=== PATIENT | male | born 1990 | race Caucasian/White ===

== ENCOUNTER 2016-09-12 12:19 | Day surgery (SDC) | payer OTHER ==
[~2016-09-12] VITALS: Ht 170.2 cm; Wt 62.8 kg
[~2016-09-12 12:19] MED LIST: MOTRIN IB200 MG PO; MOTRIN800 MG PO; OMEPRAZOLE40 M1 PO; PROAIR HFA8.5 GM IH; ULTRAM50 MG PO; ZOFRAN4 MG PO; ZYTAZE CAPSULE1 EACH PO
[2016-09-12 13:33] LABS: HEMATOCRIT 44.2 % (38.0-50.0); MCH 30.1 PG (29.0-34.0); MCHC 34.6 G/DL (30.0-36.0); MCV 86.8 FL (86-99); MEAN PLAT.VOLUME 10.4 uM^3 (9.0-12.4); PLATELET COUNT 236 K/uL (156-360); RBC DIS.WIDTH-CV 12.1 % (11.8-14.6); RBC DIS.WIDTH-SD 37.5 % (39-53); RED BLOOD COUNT 5.09 M/uL (4.00-5.50)
[2016-09-12 13:36] LABS: WHITE BLOOD COUNT 6.9 K/uL (4.1-10.2)
[2016-09-12 13:56] LABS: D-DIMER ELISA < 0.15 mg/L FEU (< 0.57)
[2016-09-12 13:57] LABS: CHLORIDE 105 mEq/L (99-109); POTASSIUM 3.9 mEq/L (3.7-5.4); SODIUM 141 mEq/L (136-147)
[2016-09-12 14:00] LABS: GLUCOSE 88 mg/dL (70-99)
[2016-09-12 14:01] LABS: ANION GAP 8 MEQ/L (2-14); TOTAL BILIRUBIN 0.7 mg/dL (0.0-1.0)
[2016-09-12 14:03] LABS: ALKALINE PHOSPHATASE 54 IU/L (3-129); GFR ESTIMATE (CALCULATED) > 59 mL/min/
[2016-09-12 14:04] LABS: UREA NITROGEN (BUN) 10 mg/dL (9-23)
[2016-09-12 14:07] LABS: LIPASE 19 U/L (1.0-51.0)
[2016-09-12 21:45] VITALS: BP 117/71
[2016-09-13 00:25] VITALS: BP 124/73
[2016-09-13 03:35] VITALS: BP 118/70
[2016-09-13 07:30] VITALS: BP 114/61
[2016-09-13] MEDS ORDERED: NORCO 5/3251 TABLET PO (09:46)
== END 2016-09-13 11:25 | disposition home or self-care (01) ==
LOC: EME 12:19 → RME 12:19 → SDC 18:44 → 2SOUTH 19:55 → 2EASTP 21:33
PROVIDERS: Nurse Practitioner Family
PROC: 0FT44ZZ Resection of Gallbladder, Percutaneous Endoscopic Approach (ICD-10-PCS; principal; 2016-09-12)
DX: K80.10 Calculus of gallbladder with chronic cholecystitis without obstruction (principal); J45.909 Unspecified asthma, uncomplicated; R01.1 Cardiac murmur, unspecified
CPT/HCPCS: 71020; 76705; 80053; 83690; 85027; 85379; 88304; 99281; 99284; G0378; J1100; J1170; J1335; J1885; J2175; J2250; J2405; J3010; J7120

== ENCOUNTER 2016-09-14 00:34 | Emergency (ER) | payer OTHER ==
[~2016-09-14] VITALS: Ht 170.2 cm; Wt 63.2 kg
[~2016-09-14 00:34] MED LIST changes: +NORCO 5/3251 TABLET PO
[2016-09-14 00:36] VITALS: BP 138/87
[2016-09-14 00:53] LABS: ADD MIUA? NO; BILIRUBIN NEGATIVE; BLOOD NEGATIVE; COLOR STRAW ((YELLOW)); GLUCOSE (STRIP) NEGATIVE; KETONES NEGATIVE; LEUKOCYTES NEGATIVE; NITRITE NEGATIVE; PROTEIN (STRIP) NEGATIVE; SPECIFIC GRAVITY 1.008 (1.000-1.030); UCUL ADDED? NO; UROBILINOGEN 0.2 MG/DL (0.2-1.0)
[2016-09-14 00:58] LABS: HEMATOCRIT 39.8 % (38.0-50.0); MCH 30.9 PG (29.0-34.0); MCHC 34.9 G/DL (30.0-36.0); MCV 88.4 FL (86-99); MEAN PLAT.VOLUME 10.4 uM^3 (9.0-12.4); PLATELET COUNT 217 K/uL (156-360); RBC DIS.WIDTH-CV 12.2 % (11.8-14.6); RBC DIS.WIDTH-SD 38.7 % (39-53); WHITE BLOOD COUNT 5.4 K/uL (4.1-10.2)
[2016-09-14 01:07] LABS: CHLORIDE 105 mEq/L (99-109); POTASSIUM 3.4 mEq/L (3.7-5.4); SODIUM 142 mEq/L (136-147)
[2016-09-14 01:09] LABS: GLUCOSE 105 mg/dL (70-99)
[2016-09-14 01:11] LABS: ANION GAP 9 MEQ/L (2-14)
[2016-09-14 01:13] LABS: ALKALINE PHOSPHATASE 60 IU/L (3-129); GFR ESTIMATE (CALCULATED) > 59 mL/min/
[2016-09-14 01:14] LABS: UREA NITROGEN (BUN) 7 mg/dL (9-23)
[2016-09-14 01:16] LABS: LIPASE 21 U/L (1.0-51.0); TOTAL BILIRUBIN 0.4 mg/dL (0.0-1.0)
== END 2016-09-14 03:21 | disposition home or self-care (01) ==
LOC: EME 00:34
DX: G89.18 Other acute postprocedural pain (principal); R10.9 Unspecified abdominal pain; E86.0 Dehydration; Z98.890 Other specified postprocedural states; J45.909 Unspecified asthma, uncomplicated; K21.9 Gastro-esophageal reflux disease without esophagitis; Z87.442 Personal history of urinary calculi
CPT/HCPCS: 74177; 80053; 81003; 83605; 83690; 85027; 87040; J2270; J2405; J7030

== ENCOUNTER 2016-12-20 16:16 | Emergency (ER) | payer OTHER ==
[~2016-12-20] VITALS: Ht 170.2 cm; Wt 67.6 kg
[2016-12-20 16:54] LABS: HEMATOCRIT 47.5 % (38.0-50.0); MCH 30.3 PG (29.0-34.0); MCHC 33.9 G/DL (30.0-36.0); MCV 89.3 FL (86-99); MEAN PLAT.VOLUME 9.6 uM^3 (9.0-12.4); PLATELET COUNT 288 K/uL (156-360); RBC DIS.WIDTH-CV 11.9 % (11.8-14.6); RBC DIS.WIDTH-SD 38.7 % (39-53); RED BLOOD COUNT 5.32 M/uL (4.00-5.50); WHITE BLOOD COUNT 9.8 K/uL (4.1-10.2)
[2016-12-20 17:02] LABS: CHLORIDE 104 mEq/L (99-109); POTASSIUM 4.4 mEq/L (3.7-5.4); SODIUM 140 mEq/L (136-147)
[2016-12-20 17:05] LABS: GLUCOSE 98 mg/dL (70-99)
[2016-12-20 17:06] LABS: ANION GAP 11 MEQ/L (2-14); TOTAL BILIRUBIN 0.6 mg/dL (0.0-1.0)
[2016-12-20 17:08] LABS: ALKALINE PHOSPHATASE 46 IU/L (3-129); GFR ESTIMATE (CALCULATED) > 59 mL/min/
[2016-12-20 17:09] LABS: UREA NITROGEN (BUN) 13 mg/dL (9-23)
[2016-12-20 17:12] LABS: LIPASE 22 U/L (1.0-51.0)
[2016-12-20 17:20] LABS: ADD MIUA? NO; BILIRUBIN NEGATIVE; BLOOD NEGATIVE; COLOR STRAW ((YELLOW)); GLUCOSE (STRIP) NEGATIVE; KETONES NEGATIVE; LEUKOCYTES NEGATIVE; NITRITE NEGATIVE; PROTEIN (STRIP) NEGATIVE; SPECIFIC GRAVITY 1.013 (1.000-1.030); UROBILINOGEN 0.2 MG/DL (0.2-1.0)
[2016-12-20] MEDS ORDERED: NAPROSYN500 MG PO (17:33)
[2016-12-20] MEDS ORDERED: FLEXERIL10 MG PO (17:33)
[2016-12-20 18:03] VITALS: BP 132/84
== END 2016-12-20 18:04 | disposition home or self-care (01) ==
LOC: EME 16:16
PROVIDERS: Physician Assistant
DX: M54.9 Dorsalgia, unspecified (principal); R10.9 Unspecified abdominal pain; K21.9 Gastro-esophageal reflux disease without esophagitis; Z87.442 Personal history of urinary calculi; Z88.8 Allergy status to other drugs, medicaments and biological substances
CPT/HCPCS: 74176; 80053; 81003; 83690; 85027; 99281; 99283; J1885

== ENCOUNTER 2017-01-26 19:36 | Emergency (ER) | payer OTHER ==
[~2017-01-26] VITALS: Ht 170.2 cm; Wt 69.5 kg
[~2017-01-26 19:36] MED LIST changes: +FLEXERIL10 MG PO; +NAPROSYN500 MG PO
[2017-01-26 20:38] LABS: HEMATOCRIT 46.4 % (38.0-50.0); MCH 30.4 PG (29.0-34.0); MCHC 34.5 G/DL (30.0-36.0); MEAN PLAT.VOLUME 10.4 uM^3 (9.0-12.4); PLATELET COUNT 258 K/uL (156-360); RBC DIS.WIDTH-CV 11.8 % (11.8-14.6); RBC DIS.WIDTH-SD 37.7 % (39-53); RED BLOOD COUNT 5.27 M/uL (4.00-5.50); WHITE BLOOD COUNT 8.1 K/uL (4.1-10.2)
[2017-01-26 20:45] LABS: CHLORIDE 105 mEq/L (99-109); POTASSIUM 4.2 mEq/L (3.7-5.4); SODIUM 143 mEq/L (136-147)
[2017-01-26 20:46] LABS: ADD MIUA? NO; BILIRUBIN NEGATIVE; BLOOD NEGATIVE; COLOR YELLOW ((YELLOW)); GLUCOSE (STRIP) NEGATIVE; KETONES NEGATIVE; LEUKOCYTES NEGATIVE; NITRITE NEGATIVE; PROTEIN (STRIP) NEGATIVE; SPECIFIC GRAVITY 1.018 (1.000-1.030); UCUL ADDED? NO; UROBILINOGEN 0.2 MG/DL (0.2-1.0)
[2017-01-26 20:47] LABS: GLUCOSE 84 mg/dL (70-99)
[2017-01-26 20:48] LABS: ANION GAP 10 MEQ/L (2-14)
[2017-01-26 20:49] LABS: TOTAL BILIRUBIN 1.2 mg/dL (0.0-1.0)
[2017-01-26 20:50] LABS: ALKALINE PHOSPHATASE 54 IU/L (3-129)
[2017-01-26 20:51] LABS: GFR ESTIMATE (CALCULATED) > 59 mL/min/
[2017-01-26 20:52] LABS: UREA NITROGEN (BUN) 13 mg/dL (9-23)
[2017-01-26] MEDS ORDERED: ZOFRAN ODT4 MG PO (21:43)
[2017-01-26] MEDS ORDERED: COLACE100 MG PO (21:43)
[2017-01-26 23:05] VITALS: BP 126/79
[2017-01-27] MEDS ORDERED: BENTYL20 MG PO (17:54)
[2017-01-27] MEDS ORDERED: PHENERGAN25 MG PR (17:54)
== END 2017-01-26 23:07 | disposition home or self-care (01) ==
LOC: EME 19:36 → EXP 19:36
DX: K59.00 Constipation, unspecified (principal); R10.30 Lower abdominal pain, unspecified; J45.909 Unspecified asthma, uncomplicated; K21.9 Gastro-esophageal reflux disease without esophagitis; Z87.442 Personal history of urinary calculi; Z87.19 Personal history of other diseases of the digestive system
CPT/HCPCS: 74176; 80053; 81003; 85027; 99281; 99284

== ENCOUNTER 2017-01-27 13:32 | Emergency (ER) | payer OTHER ==
[~2017-01-27] VITALS: Ht 170.2 cm; Wt 69.0 kg
[~2017-01-27 13:32] MED LIST changes: +COLACE100 MG PO; +ZOFRAN ODT4 MG PO
[2017-01-27 15:48] LABS: ADD MIUA? NO; BILIRUBIN NEGATIVE; BLOOD NEGATIVE; COLOR YELLOW ((YELLOW)); GLUCOSE (STRIP) NEGATIVE; KETONES NEGATIVE; LEUKOCYTES NEGATIVE; NITRITE NEGATIVE; PROTEIN (STRIP) NEGATIVE; SPECIFIC GRAVITY 1.008 (1.000-1.030); UROBILINOGEN 0.2 MG/DL (0.2-1.0)
[2017-01-27 15:58] LABS: EOSINOPHIL (%) 0.5 % (0-5); HEMATOCRIT 46.2 % (38.0-50.0); IMMATURE GRANULOCYTE (%) 0.2 % (0.0-0.7); INSTRUMENT ABS NEUTROPHIL CT 3.2 K/uL; LYMPHOCYTE COUNT 2.1 K/uL (1.0-2.8); MCH 30.3 PG (29.0-34.0); MCHC 34.8 G/DL (30.0-36.0); MCV 86.8 FL (86-99); MEAN PLAT.VOLUME 10.3 uM^3 (9.0-12.4); MONOCYTE (%) 9.4 % (3-12); MONOCYTE COUNT 0.6 K/uL (0-0.8); NEUTROPHIL (%) 54.6 % (45-76); NEUTROPHIL COUNT 3.2 K/uL (1.8-6.4); PLATELET COUNT 261 K/uL (156-360); RBC DIS.WIDTH-CV 11.7 % (11.8-14.6); RBC DIS.WIDTH-SD 37.2 % (39-53); RED BLOOD COUNT 5.32 M/uL (4.00-5.50); WHITE BLOOD COUNT 5.9 K/uL (4.1-10.2)
[2017-01-27 16:02] VITALS: BP 136/95
[2017-01-27 16:16] LABS: CHLORIDE 105 mEq/L (99-109); SODIUM 139 mEq/L (136-147)
[2017-01-27 16:18] LABS: GLUCOSE 85 mg/dL (70-99)
[2017-01-27 16:20] LABS: ANION GAP 9 MEQ/L (2-14); TOTAL BILIRUBIN 1.2 mg/dL (0.0-1.0)
[2017-01-27 16:22] LABS: ALKALINE PHOSPHATASE 50 IU/L (3-129); GFR ESTIMATE (CALCULATED) > 59 mL/min/
[2017-01-27 16:23] LABS: UREA NITROGEN (BUN) 13 mg/dL (9-23)
[2017-01-27 16:25] LABS: LIPASE 18 U/L (1.0-51.0)
[2017-01-27] MEDS ORDERED: PHENERGAN25 MG PR (17:54)
[2017-01-27] MEDS ORDERED: BENTYL20 MG PO (17:54)
== END 2017-01-27 18:56 | disposition home or self-care (01) ==
LOC: EME 13:32
PROVIDERS: Physician Assistant
DX: R10.32 Left lower quadrant pain (principal); R10.31 Right lower quadrant pain; J45.909 Unspecified asthma, uncomplicated; K21.9 Gastro-esophageal reflux disease without esophagitis; Z87.442 Personal history of urinary calculi; Z90.49 Acquired absence of other specified parts of digestive tract
CPT/HCPCS: 74177; 80053; 81003; 83690; 85025; 99281; 99284; J2405; J3010; J7030

== ENCOUNTER → 2017-03-13 | Outpatient (CLI) | payer OTHER ==
[~2017-03-13] VITALS: Ht 170.2 cm; Wt 67.3 kg
[~2017-03-13] MED LIST changes: +BENTYL20 MG PO; +COMPAZINE5 MG PO; +ELAVIL50 MG PO; +PHENERGAN25 MG PR
== END | disposition home or self-care (01) ==
LOC: AMB 08:55
PROC: 0DB98ZX Excision of Duodenum, Via Natural or Artificial Opening Endoscopic, Diagnostic (ICD-10-PCS; principal; 2017-03-13)
DX: R11.2 Nausea with vomiting, unspecified (principal); K31.84 Gastroparesis; R10.13 Epigastric pain; J45.909 Unspecified asthma, uncomplicated; Z88.1 Allergy status to other antibiotic agents; Z91.040 Latex allergy status
CPT/HCPCS: 88305; J2250; J3010

== ENCOUNTER 2017-04-06 20:28 | Emergency (ER) | payer OTHER ==
[~2017-04-06] VITALS: Ht 170.2 cm; Wt 74.5 kg
[2017-04-06 20:31] VITALS: BP 132/84
[2017-04-06] MEDS ORDERED: NAPROSYN500 MG PO (21:30)
== END 2017-04-06 21:46 | disposition home or self-care (01) ==
LOC: EME 20:28 → EXP 20:28
DX: S46.211A Strain of muscle, fascia and tendon of other parts of biceps, right arm, initial encounter (principal); X50.0XXA Overexertion from strenuous movement or load, initial encounter; X50.9XXA Other and unspecified overexertion or strenuous movements or postures, initial encounter; Y92.512 Supermarket, store or market as the place of occurrence of the external cause
CPT/HCPCS: 73060; 99281; 99284

== ENCOUNTER 2017-11-08 22:05 | Emergency (ER) | payer OTHER, BC ==
[~2017-11-08] VITALS: Ht 170.2 cm; Wt 79.2 kg
[2017-11-09] MEDS ORDERED: MOTRIN800 MG PO (03:32)
[2017-11-09] MEDS ORDERED: LIDODERM 5% P1 PATCH TD (03:32)
[2017-11-09 03:50] VITALS: BP 126/76
== END 2017-11-09 03:50 | disposition left against medical advice (07) ==
LOC: EME 22:05 → EXP 22:05
DX: M79.602 Pain in left arm (principal); Z04.2 Encounter for examination and observation following work accident; Z53.21 Procedure and treatment not carried out due to patient leaving prior to being seen by health care provider
CPT/HCPCS: 93971; 99281; 99284

== ENCOUNTER 2017-11-28 13:07 | Emergency (ER) | payer OTHER, BC ==
[~2017-11-28] VITALS: Ht 170.2 cm; Wt 78.2 kg
[~2017-11-28 13:07] MED LIST changes: +LIDODERM 5% P1 PATCH TD
[2017-11-28 13:12] VITALS: BP 136/93
[2017-11-28] MEDS ORDERED: ULTRAM50 MG PO (14:07)
[2017-11-28] MEDS ORDERED: MOBIC7.5 MG PO (14:07)
== END 2017-11-28 14:17 | disposition home or self-care (01) ==
LOC: EME 13:07
DX: S43.402A Unspecified sprain of left shoulder joint, initial encounter (principal); X50.0XXA Overexertion from strenuous movement or load, initial encounter; Y99.0 Civilian activity done for income or pay; K21.9 Gastro-esophageal reflux disease without esophagitis; Z88.8 Allergy status to other drugs, medicaments and biological substances; Z91.040 Latex allergy status
CPT/HCPCS: 99281; 99284

== ENCOUNTER 2018-02-06 23:28 | Emergency (ER) | payer OTHER, BC ==
[~2018-02-06] VITALS: Ht 170.2 cm; Wt 82.8 kg
[~2018-02-06 23:28] MED LIST changes: +MOBIC7.5 MG PO
[2018-02-07 02:19] LABS: HEMATOCRIT 42.8 % (38.0-50.0); HEMOGLOBIN 14.7 G/DL (12.5-16.6); MCH 30.9 PG (29.0-34.0); MCHC 34.3 G/DL (30.0-36.0); MCV 89.9 FL (86-99); RBC DIS.WIDTH-CV 12.2 % (11.8-14.6); RBC DIS.WIDTH-SD 40.5 % (39-53); RED BLOOD COUNT 4.76 M/uL (4.00-5.50)
[2018-02-07 02:19] LABS: APPEARANCE CLEAR ((CLEAR)); BILIRUBIN NEGATIVE; BLOOD NEGATIVE; COLOR COLORLESS ((YELLOW)); GLUCOSE (STRIP) NEGATIVE; KETONES NEGATIVE; LEUKOCYTES NEGATIVE; NITRITE NEGATIVE; PROTEIN (STRIP) NEGATIVE; SPECIFIC GRAVITY 1.004 (1.000-1.030); UCUL ADDED? NO; UROBILINOGEN 0.2 MG/DL (0.2-1.0)
[2018-02-07 02:27] LABS: CHLORIDE 103 mEq/L (99-109); POTASSIUM 3.9 mEq/L (3.7-5.4); SODIUM 140 mEq/L (136-147)
[2018-02-07 02:29] LABS: GLUCOSE 97 mg/dL (70-99)
[2018-02-07 02:33] LABS: CREATININE 1.1 mg/dL (0.6-1.3); GFR ESTIMATE (CALCULATED) > 59 mL/min/ (58.99-99999)
[2018-02-07 02:34] LABS: UREA NITROGEN (BUN) 9 mg/dL (9-23)
[2018-02-07 03:13] LABS: PLAT.SUFFICIENCY ADEQUATE; PLATELET COUNT 250 K/uL (156-360)
[2018-02-07 03:38] VITALS: BP 125/82
== END 2018-02-07 03:37 | disposition home or self-care (01) ==
LOC: EME 23:28
PROVIDERS: Emergency Medicine
DX: R50.82 Postprocedural fever (principal); Z98.890 Other specified postprocedural states; M25.512 Pain in left shoulder; J45.909 Unspecified asthma, uncomplicated; Z87.442 Personal history of urinary calculi; Z90.49 Acquired absence of other specified parts of digestive tract; Z91.040 Latex allergy status; Z88.1 Allergy status to other antibiotic agents
CPT/HCPCS: 71045; 73030; 80048; 81003; 85027; 99281; 99285